=== PATIENT | male | born 1980 | race Caucasian/White ===

== ENCOUNTER 2017-11-25 15:54 | Emergency (ER) | payer BC ==
[2017-11-25 18:42] VITALS: BP 166/91
--- NOTE | 2017-11-25 18:55 | UC ---
FLU HPI - HPI Summary HPI Summary: Patient presents with complaints of generalized fatigue and malaise, cough, fever. He states his symptoms began about two days ago, and at first didn't seem to be too bad, but today they symptoms got much worse with increased fatigue, nausea and generally not feeling well, he states he had to leave work because he felt so poorly. He denies chest pain, dyspena, abdominal pain, vomiting or diarrhea. - History of Current Complaint Chief Complaint: UCGeneralIllness Stated Complaint: FLU SYMPTOMS Time Seen by Provider: 11/25/17 18:21 Hx Obtained From: Patient Onset/Duration: Gradual Onset, Lasting Hours Severity Currently: Mild Severity Initially: Moderate Pain Intensity: 4 Associated Signs & Symptoms: Positive: Negative - Risk Factors Influenza Risk Factors: Negative - Allergy/Home Medications Allergies/Adverse Reactions: Allergies Allergy/AdvReac Type Severity Reaction Status Date / Time No Known Allergies Allergy Verified 11/25/17 16:40 PMH/Surg Hx/FS Hx/Imm Hx Previously Healthy: Yes - Surgical History Surgical History: None - Family History Known Family History: Positive: None - Social History Occupation: Employed Full-time Lives: Alone Alcohol Use: Occasionally Substance Use Type: None Smoking Status (MU): Never Smoked Tobacco Review of Systems Constitutional: Chills, Fatigue Skin: Negative Eyes: Negative ENT: Negative Respiratory: Cough Cardiovascular: Negative Gastrointestinal: Nausea Genitourinary: Negative Motor: Negative Neurovascular: Negative Musculoskeletal: Negative Neurological: Negative Psychological: Negative Is Patient Immunocompromised?: No All Other Systems Reviewed And Are Negative: Yes Physical Exam Triage Information Reviewed: Yes Appearance: Well-Appearing Vital Signs: Initial Vital Signs Temp 100.8 F 11/25/17 16:32 Pulse 83 11/25/17 16:32 Resp 20 11/25/17 16:32 BP 145/80 11/25/17 16:32 Pulse Ox 100 11/25/17 16:32 Vital Signs Reviewed: Yes Eye Exam: Normal ENT Exam: Normal Neck exam: Normal Neck: Positive: 1 Respiratory Exam: Normal Cardiovascular Exam: Normal Abdominal Exam: Normal Musculoskeletal Exam: Normal Neurological Exam: Normal Psychological Exam: Normal Skin Exam: Normal Flu Course/Dx - Course Course Of Treatment: Patient tested positive for influenza A, and was treated with tamiflu, and robitussin/cough medicaions. He was told to stay at home for 3-5 days, isolate himself and if for any reason his symtpoms worsen he should be re-evaluated. He verbalized understadning of and in agreement with the discharge plan. - Differential Dx/Diagnosis Differential Diagnosis/HQI/PQRI: Influenza Provider Diagnoses: influenza Discharge - Discharge Plan Condition: Stable Disposition: HOME Prescriptions: Guaifenesin-Codeine [Codeine/Guaifenesin 100-10 mg/5Ml] 5 ml PO Q6H PRN #180 ml MDD 4 PRN Reason: Cough Oseltamivir CAP* [Tamiflu CAP*] 75 mg PO BID #10 cap Patient Education Materials: Influenza (DC) Referrals: Edwin Felix MD [Primary Care Provider] -
== END 2017-11-25 18:55 | disposition home or self-care (01) ==
LOC: UCEAST 15:54
DX: J11.1 Influenza due to unidentified influenza virus with other respiratory manifestations (principal)
CPT/HCPCS: 87502; 99212; G0463